=== PATIENT | female | born 1960 | race Caucasian/White ===

== ENCOUNTER 2020-03-29 13:53 | Emergency (ER) | payer MEDICARE, SELFPAY ==
--- NOTE | ~2020-03-29 | US_ITS ---
US abdomen complete EXAMINATION: US Abdomen Complete INDICATION: Diarrhea. Abdomen pain. PROCEDURE: Realtime High Resolution abdomen ultrasound. COMPARISON: No prior studies for comparison FINDINGS: Gallbladder is surgically absent. Common bile duct measures 5.6 mm. Liver echotexture is increased, consistent with fatty infiltration.. Pancreas within normal limits. Pancreatic tail is obscured by bowel gas. Spleen is unremarkeable. Renal echotexture is within norm al limits bilaterally without hydronephrosis, contour deforming mass or renal stone. Right kidney stacey sures 10.4 cm. Left kidney measures 10.7 cm. Visualized aspects of the aorta and IVC are within normal limits. Portal vein is patent. No sonograph ic Salgado's sign indicated by the technologist. IMPRESSION: 1: Hepatic steatosis. 2: Gallbladder is surgically absent. Reviewed, dictated and finalized at location A.
[2020-03-29 13:58] VITALS: BP 127/91; PULSE 109; RESP 16; TEMP 36.9; O2SAT 96
--- NOTE | 2020-03-29 14:11 | ED.NAVMDI ---
HPI - Nausea/Vomiting/Diarrhea General Chief complaint: Abdominal Pain Stated complaint: diarrhea/abd pain Time Seen by Provider: 03/29/20 14:07 Source: patient History of Present Illness HPI Narrative: Pt c/o diarrhea, loose watery, accompanied by lower abd pain, started 3 years ago on and off.. Denies abd pain, n/v or fever. Pt states she's had multiple ct scans of her abd/pelvis due to the above complaints. MD elicited complaint: diarrhea Related Data Home Medications Medication Instructions Recorded Confirmed ketoconazole 2 % topical cream 1 applic TOPICAL DAILY 10/25/19 trazodone 100 mg PO HS 03/29/20 Allergies Allergy/AdvReac Type Severity Reaction Status Date / Time oxymorphone Allergy Severe ANAPHYLAXIS Verified 03/29/20 14:06 sulfamethoxazole Allergy Mild Unknown Verified 03/29/20 14:06 trimethoprim Allergy Mild Unknown Verified 03/29/20 14:06 cimetidine Allergy Unknown Unknown Verified 03/29/20 14:06 erythromycin base Allergy Unknown Unknown Verified 03/29/20 14:06 Macrolide Antibiotics Allergy Unknown Unknown Verified 03/29/20 14:06 prochlorperazine Allergy Unknown Agitated Verified 03/29/20 14:06 promethazine Allergy Unknown Agitated Verified 03/29/20 14:06 Sulfa (Sulfonamide Allergy Unknown Itching Verified 03/29/20 14:06 Antibiotics) azithromycin Allergy Unknown Verified 03/29/20 14:06 [From Zithromax Z-Zhao] Review of Systems Review of Systems: All systems reviewed & are unremarkable except as noted in HPI and below Constitutional: Constitutional: Denies body ache(s), Denies chills, Denies excessive sweating, Denies fatigue, Denies fever(s), Denies headache(s), Denies lethargy, Denies malaise, Denies weakness and Denies weight loss Eyes: Eyes: Denies blurry vision, Denies change in vision and Denies loss of vision ENT: Denies dizziness, Denies ear discharge, Denies headache(s), Denies lip swelling, Denies epistaxis, Denies nasal congestion, Denies neck pain, Denies throat swelling and Denies tongue swelling Cardiovascular: Cardiovascular: Denies chest pain, Denies chest pain at rest, Denies chest pain with activity, Denies diaphoresis, Denies rapid heart rate, Denies edema, Denies irregular heart rhythm, Denies lightheadedness, Denies palpitations, Denies dyspnea and Denies dyspnea on exertion Respiratory: Respiratory: Denies chest congestion, Denies cough, Denies hemoptysis, Denies dyspnea and Denies dyspnea on exertion Gastrointestinal: Gastrointestinal: Denies abdominal pain, Denies melena, Denies hematochezia, Denies nausea, Denies vomiting and Denies hematemesis Musculoskeletal: Musculoskeletal: Denies abnormal gait, Denies deformity, Denies joint swelling, Denies limited range of motion, Denies neck pain and Denies numbness Neurologic: Denies Abnormal speech present, Denies abnormal gait, Denies confusion, Denies dizziness, Denies headache(s), Denies focal weakness, Denies loss of vision, Denies numbness, Denies Other visual disturbances, Denies Sensory deficit (Neuro) and Denies weakness Psychiatric: Psychiatric: Denies confusion, Denies depression, Denies auditory hallucinations, Denies homicidal ideation and Denies suicidal ideation Endocrine: Endocrine: Denies cold intolerance, Denies excessive sweating, Denies fatigue, Denies heat intolerance and Denies palpitations Hematologic/Lymphatic: Hematologic/Lymphatic: Denies easy bleeding and Denies easy bruising Allergic/Immunologic: Allergic/Immunologic: Denies lip swelling, Denies throat swelling and Denies tongue swelling [facility] Past Medical History Medical History (Updated 03/29/20 @ 16:59 by James Li MD) Acute hypokalemia Bilateral wrist pain BMI 28.0-28.9,adult BMI 29.0-29.9,adult Edema Follow up On fdc drug therapy Right wrist pain Tenosynovitis of right wrist Social History Social History Smoking status: Smoker, status unknown Alcohol intake: current
[2020-03-29 14:31] LABS: Basophils Absolute Auto 0.1 K/mm3 (0.0-0.1); Basophils Percent Auto 0.6 % (0.2-1.2); Eosinophils Absolute Auto 0.1 K/mm3 (0-0.3); Eosinophils Percent Auto 0.7 % (0-4.4); Hematocrit 43.9 % (37.0-47.0); Hemoglobin 14.7 g/dL (12.0-15.0); Immature Granulocyte Absolute 0.05 K/mm3 (0.00-0.031); Immature Granulocyte Percent A 0.6 % (0-0.5); Lymphocytes Absolute Auto 2.08 K/mm3 (0.9-3.2); Lymphocytes Percent Auto 23.3 % (18.3-44.2); Mean Corpuscular HGB Conc 33.5 g/dl (32-36); Mean Corpuscular Hemoglobin 36.4 pg (26-34); Mean Corpuscular Volume 108.7 fl (80-100); Mean Platelet Volume 10.5 fl (7.4-10.4); Monocytes Absolute Auto 0.7 K/mm3 (0.1-0.6); Monocytes Percent Auto 7.3 % (2.6-8.5); Neutrophils Percent Auto 67.5 % (45.5-73.1); Platelet Count Result 301 k/mm3 (150-375); Red Blood Count 4.04 M/mm3 (4.2-5.4); Red Cell Distribution Width 13.8 % (11.5-14.5); White Blood Count 8.9 K/mm3 (4.5-10.0)
[2020-03-29 14:36] LABS: Alanine Aminotransferase 32 U/L (4-35); Albumin Level 4.4 g/dL (3.5-5.1); Alkaline Phosphatase 118 U/L (38-126); Aspartate Amino Transferase 72 U/L (14-36); Bilirubin,Total 0.4 mg/dL (0.2-1.3); Blood Urea Nitrogen 3 mg/dL (7-17); Calcium 9.4 mg/dL (8.4-10.2); Carbon Dioxide 18 mmol/L (22-30); Chloride 101 mmol/L (98-107); Estimated CRCL calculation 75 ml/min; Estimated Glomerular Filt Rate > 60; Glucose 173 mg/dL (65-105); Sodium 134 mmol/L (137-145)
[2020-03-29] MEDS: SODIUM CHLORIDE 0.9% IV 1,000 ML 999 ML IV CONT (14:54)
[2020-03-29] MEDS: ACETAMINOPHEN 325 MG TABLET 650 MG PO (16:27)
== END 2020-03-29 17:19 | disposition left against medical advice (07) ==
PROVIDERS: Emergency Provider Emergency Medicine; PCP Internal Medicine
DX: R10.30 Lower abdominal pain, unspecified (principal); R19.7 Diarrhea, unspecified
CPT/HCPCS: 36415; 76700; 80053; 85025; 96360; 99284; A9270; J7030

== ENCOUNTER 2020-04-09 05:40 | Outpatient (CLI) | payer MEDICARE, SELFPAY ==
[2020-04-09 15:31] LABS: SARS-CoV-2 RNA PCR Negative
== END 2020-04-09 05:41 | disposition home or self-care (01) ==
LOC: ANHCOVIDDT 05:41
PROVIDERS: PCP Internal Medicine; Visit Provider Internal Medicine Gastroenterology
DX: Z01.818 Encounter for other preprocedural examination (principal); Z11.59 Encounter for screening for other viral diseases
CPT/HCPCS: 87635; U0003

== ENCOUNTER 2020-04-11 01:20 | Day surgery (SDC) | payer MEDICARE, SELFPAY ==
[2020-04-06 15:13] VITALS: BMI 28.5
[2020-04-11 07:12] VITALS: BP 119/97; PULSE 97; RESP 20; TEMP 36.6; O2SAT 98
[2020-04-11] MEDS: LACTATED RINGERS 1,000 ML 150 ML IV CONT (07:31)
--- NOTE | 2020-04-11 08:00 | WPDANESEPPF ---
Anes - Initial Pre Proc Eval Procedure: Operation Date: 04/11/20 08:30 Proposed Procedures p Colonoscopy - Mariano Alarcon MD Date/Time: 04/11/20 08:00 Surgeon: Mariano Alarcon MD Pre Op Diagnosis: Diarrhea, Abd pain, Family Hx Colon Ca Patient Data Age: 60 Gender: F Height: 5 ft 8 in Weight: 85 kg Last Vital Signs Temp 36.6 C 04/11/20 07:12 Pulse 97 04/11/20 07:12 Resp 20 04/11/20 07:12 BP 119/97 H 04/11/20 07:12 Pulse Ox 98 04/11/20 07:12 Allergies Allergy/AdvReac Type Severity Reaction Status Date / Time oxymorphone Allergy Severe ANAPHYLAXIS Verified 04/11/20 07:08 sulfamethoxazole Allergy Mild Unknown Verified 04/06/20 15:17 erythromycin base Allergy Unknown Unknown Verified 04/06/20 15:17 Macrolide Antibiotics Allergy Unknown Unknown Verified 04/06/20 15:17 prochlorperazine Allergy Unknown Agitated Verified 04/06/20 15:17 promethazine Allergy Unknown Agitated Verified 04/06/20 15:17 Sulfa (Sulfonamide Allergy Unknown Itching Verified 04/11/20 07:08 Antibiotics) azithromycin Allergy Unknown Verified 04/11/20 07:08 [From [employer]] Home Medications Medication Instructions Recorded Confirmed Type albuterol sulfate 90 mcg/actuation 1 puff INHALATION Q4H PRN #8 gm 02/24/20 04/11/20 Rx aerosol inhaler esomeprazole magnesium 20 mg 20 mg PO DAILY #90 cap 02/24/20 04/11/20 Rx capsule,delayed release ondansetron HCl 8 mg tablet 8 mg PO TID #60 tablet 02/24/20 04/11/20 Rx trazodone 100 mg PO HS 03/29/20 04/11/20 History lorazepam 0.5 mg tablet 0.5 mg PO DAILY PRN #2 tablet 04/10/20 Rx Patient hx anesthesia problems: none Family hx anesthesia problems: none PMFSH Past Medical History Medical History Acute hypokalemia Bilateral wrist pain BMI 28.0-28.9,adult BMI 29.0-29.9,adult Edema 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 Right wrist pain Tenosynovitis of right wrist Surgical History Surgical History S/P hysterectomy Family History Family History Mother Diabetes mellitus Hypertension Family history of chronic obstructive pulmonary disease Sibling Diabetes mellitus Family history of gout Father Family history of cardiovascular disease Family history of chronic obstructive pulmonary disease Grandparent Carcinoma of colon Other Family history of arthritis Social History Social History Smoking status: Smoker, status unknown Alcohol intake: current Anes - Eval Final PreProcedure Day of Procedure 04/11/20 08:00 Patient weight: overweight Heart: regular rate and rhythm Lungs: clear to auscultation Airway: Mallampati scale class II Neurological: alert and oriented Last oral intake: >/= 8 hours ASA classification: III Emergent: no Anesthetic plan: proceed Anesthesia type and monitoring: general GIVS and standard monitoring Informed Consent: The patient's anesthetic plan and its attendant risks and benefits were discussed with the patient/family/POA. Questions were solicited and answers provided to the satisfaction of the patient/family/POA.
--- NOTE | 2020-04-11 08:06 | WPDGICN ---
Assessment and Plan Assessment and plan (1) Abdominal pain: Code(s): R10.9 - Unspecified abdominal pain Status: Acute (2) Rectal bleeding: Code(s): K62.5 - Hemorrhage of anus and rectum Status: Acute Assessment and Plan: Colonoscopy will be performed to assess diarrhea rectal bleeding change in bowel habits. Inter abdominal pain. If this is not fruitful stool cultures are advised in a trial of antispasmodic agents may be of some benefit. High fiber supplements will also be considered. There appears to be a functional component to this discomfort on discussions with patient. (3) Diarrhea: Code(s): R19.7 - Diarrhea, unspecified Status: Acute (4) Obesity (BMI 30.0-34.9): Code(s): E66.9 - Obesity, unspecified Status: Acute GI Consult Note Consult date/time: 04/11/20 08:06 HPI: Kayce Guy is a 60 year old female Seen in evaluation at the request of Dr. Sevilla. Patient he complains of diarrhea for the last 3 years. She constantly has abdominal pain this will fluctuate become more intense at times. Occasionally will have rectal pain. Intermittently will notice blood per rectum she describes this as burgundy in nature. She denies a fever. She denies weight loss. Family history is significant for colon cancer in a grandparent. Past medical history is significant for a hysterectomy. Patient denies prior history of stool cultures. Review of Systems Review of Systems: All systems reviewed & are unremarkable except as noted in HPI and below PMFSH Past Medical History Medical History Acute hypokalemia Bilateral wrist pain BMI 28.0-28.9,adult BMI 29.0-29.9,adult Edema Follow up On intermediate drug therapy Right wrist pain Tenosynovitis of right wrist Surgical History Surgical History S/P hysterectomy Family History Family History Mother Diabetes mellitus Hypertension Family history of chronic obstructive pulmonary disease Sibling Diabetes mellitus Family history of gout Father Family history of cardiovascular disease Family history of chronic obstructive pulmonary disease Grandparent Carcinoma of colon Other Family history of arthritis Social History Social History Smoking status: Smoker, status unknown Alcohol intake: current Meds Home Medications and Allergies Home Medications Medication Instructions Recorded Confirmed Type albuterol sulfate 90 mcg/actuation 1 puff INHALATION Q4H PRN #8 gm 02/24/20 04/11/20 Rx aerosol inhaler esomeprazole magnesium 20 mg 20 mg PO DAILY #90 cap 02/24/20 04/11/20 Rx capsule,delayed release ondansetron HCl 8 mg tablet 8 mg PO TID #60 tablet 02/24/20 04/11/20 Rx trazodone 100 mg PO HS 03/29/20 04/11/20 History lorazepam 0.5 mg tablet 0.5 mg PO DAILY PRN #2 tablet 04/10/20 Rx Allergies Allergy/AdvReac Type Severity Reaction Status Date / Time oxymorphone Allergy Severe ANAPHYLAXIS Verified 04/11/20 07:08 sulfamethoxazole Allergy Mild Unknown Verified 04/06/20 15:17 erythromycin base Allergy Unknown Unknown Verified 04/06/20 15:17 Macrolide Antibiotics Allergy Unknown Unknown Verified 04/06/20 15:17 prochlorperazine Allergy Unknown Agitated Verified 04/06/20 15:17 promethazine Allergy Unknown Agitated Verified 04/06/20 15:17 Sulfa (Sulfonamide Allergy Unknown Itching Verified 04/11/20 07:08 Antibiotics) azithromycin Allergy Unknown Verified 04/11/20 07:08 [From Zithromax Z-Zhao] Vital Signs Vital Signs - 24 hr 04/11/20 07:12 Temperature 36.6 C Pulse Rate 97 Respiratory Rate 20 Blood Pressure 119/97 H Pulse Oximetry 98 Exam Narrative: Exam Narrative: Physical exam reveals her to be alert. Vital signs stable. HEENT exam unremar
[2020-04-11 09:08] VITALS: BP 86/52; PULSE 85; RESP 27; O2SAT 98
[2020-04-11 09:18] VITALS: BP 104/66; PULSE 83; RESP 25; O2SAT 99
[2020-04-11 09:28] VITALS: BP 105/69; PULSE 78; RESP 26; O2SAT 99
== END 2020-04-11 09:52 | disposition home or self-care (01) ==
PROVIDERS: PCP Internal Medicine; Visit Provider Internal Medicine Gastroenterology
PROC: 0DJD8ZZ Inspection of Lower Intestinal Tract, Via Natural or Artificial Opening Endoscopic (ICD-10-PCS; CPT 45378; principal; 2020-04-11 08:30)
DX: R10.84 Generalized abdominal pain (principal); K62.5 Hemorrhage of anus and rectum; K62.1 Rectal polyp; R19.7 Diarrhea, unspecified; K64.8 Other hemorrhoids; Z72.0 Tobacco use
CPT/HCPCS: 45380; 45385; 87635; 88305; C9803; J2704; J7120; U0003

== ENCOUNTER 2020-07-09 14:57 | Outpatient (CLI) | payer MEDICARE, SELFPAY ==
--- NOTE | ~2020-07-09 | XR_ITS ---
EXAMINATION: XR lumbar spine 2-3V EXAM DATE: 07/09/2020 16:27 INDICATION: Low back pain. TECHNIQUE: Lumber spine frontal, lateral, lateral L5-S1 projections for interpretation. Comparison is made to prior examination from 02/28/2017. FINDINGS: L5-S1 interbody device. Pain pump device and cholecystectomy clips. There is mild upper divine mbar, mild to moderate lower lumbar facet arthropathy. Vertebral body and disc heights are well-maint ained. The vertebral bodies are aligned in the AP dimension. There is mild to moderate scattered enoc riosclerotic disease. Paraspinal soft tissue is unremarkable. IMPRESSION: 1. No acute lumbar findings. 2. Mild to moderate facet arthropathy. Reviewed, dictated and finalized at location A.
--- NOTE | ~2020-07-09 | XR_ITS ---
EXAMINATION: XR pelvis 1-2V DATE: 07/09/2020 16:27 INDICATION: Low back pain. TECHNIQUE: An anteroposterior view of the pelvis was obtained. COMPARISON: CT abdomen and pelvis 07/24/2018 FINDINGS: Bone alignment is normal. No fracture. There are changes of anterior fusion procedure at L5 -S1 with interbody device. A pump overlies the lumbar spine. The hip joints are normal. IMPRESSION: 1. No fracture. Reviewed, dictated and finalized at location B. IMPRESSION: 1. No fracture.
[2020-07-09 16:09] LABS: Basophils Percent Auto 0.3 % (0.2-1.2); Eosinophils Absolute Auto 0.1 K/mm3 (0-0.3); Eosinophils Percent Auto 0.6 % (0-4.4); Hematocrit 35.1 % (37.0-47.0); Hemoglobin 11.7 g/dL (12.0-15.0); Immature Granulocyte Absolute 0.04 K/mm3 (0.00-0.031); Immature Granulocyte Percent A 0.5 % (0-0.5); Lymphocytes Absolute Auto 1.45 K/mm3 (0.9-3.2); Lymphocytes Percent Auto 18.7 % (18.3-44.2); Mean Corpuscular HGB Conc 33.3 g/dl (32-36); Mean Corpuscular Hemoglobin 40.5 pg (26-34); Mean Corpuscular Volume 121.5 fl (80-100); Mean Platelet Volume 10.2 fl (7.4-10.4); Monocytes Absolute Auto 0.6 K/mm3 (0.1-0.6); Monocytes Percent Auto 7.2 % (2.6-8.5); Neutrophils Absolute Auto 5.6 K/mm3 (1.3-6.7); Neutrophils Percent Auto 72.7 % (45.5-73.1); Platelet Count Result 229 k/mm3 (150-375); Red Blood Count 2.89 M/mm3 (4.2-5.4); Red Cell Distribution Width 13.7 % (11.5-14.5); White Blood Count 7.8 K/mm3 (4.5-10.0)
[2020-07-09 16:15] LABS: Alanine Aminotransferase 20 U/L (4-35); Albumin Level 3.8 g/dL (3.5-5.1); Alkaline Phosphatase 89 U/L (38-126); Anion Gap 7 mmol/L (8-16); Aspartate Amino Transferase 35 U/L (14-36); Bilirubin,Total 0.6 mg/dL (0.2-1.3); Blood Urea Nitrogen 7 mg/dL (7-17); Calcium 9.1 mg/dL (8.4-10.2); Carbon Dioxide 24 mmol/L (22-30); Chloride 105 mmol/L (98-107); Estimated Glomerular Filt Rate > 60; Glucose 116 mg/dL (65-105); Potassium 3.5 mmol/L (3.4-5.0); Sodium 136 mmol/L (137-145)
== END 2020-07-09 14:58 | disposition home or self-care (01) ==
PROVIDERS: PCP Internal Medicine; Visit Provider Internal Medicine
DX: M54.5 Low back pain (principal); Z79.899 Other long term (current) drug therapy
CPT/HCPCS: 36415; 72100; 72170; 80048; 80076; 85025

== ENCOUNTER 2020-07-18 09:18 | Outpatient (CLI) | payer MEDICARE, SELFPAY ==
--- NOTE | ~2020-07-18 | CT_ITS ---
EXAMINATION: CT lumbar spine wo con EXAM DATE: 07/18/2020 09:53 INDICATION: TECHNIQUE: Spiral CT of the lumbar spine was performed without contrast. Axial, coronal and sagittal images were reviewed. The dose-length product (DLP) for this examination was 952.02 mGy-cm. The e xposure was tailored according to patient size (auto mA exposure control), and iterative reconstructi on (ASIR) was used as additional dose reduction technique. There is no prior study for comparison. FINDINGS: There is interbody fusion, and probable laminotomies at L5-S1. Spine stimulator device ente ring at the L2-3 level. There are no acute fractures identified. The vertebral bodies are aligned in the AP dimension. Vertebral body and disc heights are well-maintained. Level by level evaluation: T12-L1: Disc does not extend beyond the endplate margin. Facet arthropathy: None. Neural foraminal stenosis: No stenosis. Central canal stenosis: No stenosis. L1-L2: Disc does not extend beyond the endplate margin. Facet arthropathy: None. Neural foraminal stenosis: No stenosis. Central canal stenosis: No stenosis. L2-L3: There is a mild diffuse disc bulge. Facet arthropathy: Mild. Neural foraminal stenosis: Mild bilateral. Central canal stenosis: No stenosis. L3-L4: There is a mild diffuse disc bulge. Facet arthropathy: Mild. Neural foraminal stenosis: Mild bilateral. Central canal stenosis: No stenosis. L4-L5: There is a mild diffuse disc bulge. Facet arthropathy: Mild. Neural foraminal stenosis: Mild bilateral. Central canal stenosis: No stenosis. L5-S1: This level is fused. Facet arthropathy: Fused. Neural foraminal stenosis: Mild left. Central canal stenosis: No stenosis. IMPRESSION: 1. L5-S1 surgical changes. Spine stimulator. 2. Mild lumbar spondylosis. Reviewed, dictated and finalized at location B.
== END 2020-07-18 09:19 ==
PROVIDERS: Visit Provider Nurse Practitioner Family
DX: M47.896 Other spondylosis, lumbar region (principal)
CPT/HCPCS: 72131

== ENCOUNTER 2020-09-07 07:42 | Outpatient (CLI) | payer MEDICARE, SELFPAY ==
--- NOTE | ~2020-09-07 | XR_ITS ---
EXAMINATION: XR chest 2V DATE: 09/07/2020 08:14 INDICATION: Right lower chest pain. Cough. TECHNIQUE: Frontal and lateral views of the chest were obtained. COMPARISON: Chest 2 views 12/04/2018, chest CT 02/10/2019 FINDINGS: The chest demonstrates clear lungs without pneumonia, pleural effusion, or pneumothorax. Th e heart size is normal. There are epidural electrodes in thoracic spine. IMPRESSION: 1. No acute cardiopulmonary disease. Reviewed, dictated and finalized at location D.
[2020-09-07 08:03] LABS: Basophils Percent Auto 0.2 % (0.2-1.2); Eosinophils Percent Auto 0.3 % (0-4.4); Hematocrit 32.4 % (37.0-47.0); Hemoglobin 11.2 g/dL (12.0-15.0); Immature Granulocyte Absolute 0.07 K/mm3 (0.00-0.031); Immature Granulocyte Percent A 0.6 % (0-0.5); Lymphocytes Absolute Auto 1.28 K/mm3 (0.9-3.2); Lymphocytes Percent Auto 11.5 % (18.3-44.2); Mean Corpuscular HGB Conc 34.6 g/dl (32-36); Mean Corpuscular Hemoglobin 40.6 pg (26-34); Mean Corpuscular Volume 117.4 fl (80-100); Mean Platelet Volume 9.1 fl (7.4-10.4); Monocytes Absolute Auto 0.6 K/mm3 (0.1-0.6); Monocytes Percent Auto 5.5 % (2.6-8.5); Neutrophils Absolute Auto 9.1 K/mm3 (1.3-6.7); Neutrophils Percent Auto 81.9 % (45.5-73.1); Platelet Count Result 299 k/mm3 (150-375); Red Blood Count 2.76 M/mm3 (4.2-5.4); Red Cell Distribution Width 14.8 % (11.5-14.5); White Blood Count 11.1 K/mm3 (4.5-10.0)
[2020-09-07 08:18] LABS: Anion Gap 8 mmol/L (8-16); Blood Urea Nitrogen 10 mg/dL (7-17); Calcium 9.3 mg/dL (8.4-10.2); Carbon Dioxide 28 mmol/L (22-30); Chloride 104 mmol/L (98-107); Estimated Glomerular Filt Rate 57; Glucose 141 mg/dL (65-105); Potassium 3.8 mmol/L (3.4-5.0); Sodium 140 mmol/L (137-145)
== END 2020-09-07 07:43 | disposition home or self-care (01) ==
PROVIDERS: PCP Internal Medicine; Visit Provider Internal Medicine
DX: J44.9 Chronic obstructive pulmonary disease, unspecified (principal); Z79.899 Other long term (current) drug therapy
CPT/HCPCS: 36415; 71046; 80048; 85025

== ENCOUNTER 2020-11-05 15:35 | Outpatient (CLI) | payer MEDICARE, SELFPAY ==
--- NOTE | ~2020-11-05 | XR_ITS ---
EXAMINATION: XR thoracic spine 3V DATE: 11/05/2020 16:38 INDICATION: Thoracic back pain TECHNIQUE: AP, lateral and lateral swimmer's views of the thoracic spine were obtained. COMPARISON: CT, 02/10/2019 FINDINGS: There is chronic mild loss of vertebral body height at T4. There is mild anterior wedging a t T9, new since the comparison examination. Neurostimulator leads end in the central spinal canal ove r the midthoracic spine. Vertebral body alignment is normal. There is mild loss of intervertebral dis c space height in the midthoracic spine. IMPRESSION: 1. Mild anterior wedging at T9, new since the prior examination, consistent with age indeterminate fr acture. Reviewed, dictated and finalized at location A. [employer] IMPRESSION: 1. Mild anterior wedging at T9, new since the prior examination, consistent wit h age indeterminate fracture.
== END 2020-11-05 15:36 | disposition home or self-care (01) ==
LOC: ANHIMG 15:37
PROVIDERS: PCP Internal Medicine; Visit Provider Internal Medicine
DX: M54.6 Pain in thoracic spine (principal)
CPT/HCPCS: 72072

== ENCOUNTER 2020-11-14 14:40 | Outpatient (CLI) | payer MEDICARE, SELFPAY ==
--- NOTE | ~2020-11-14 | CT_ITS ---
EXAMINATION: CT thoracic lumbar wo con EXAM DATE: 11/14/2020 15:18 INDICATION: M54.6 - Pain in thoracic spine TECHNIQUE: Spiral CT thoracolumbar spine was performed without contrast. Axial, coronal and sagittal images of the thoracic spine were reviewed. Axial, coronal and sagittal images of the lumbar spine we re reviewed. The dose-length product (DLP) for this examination was 1919.52 mGy-cm. The exposure was tailored according to patient size (auto mA exposure control), and iterative reconstruction (ASIR) w as used as additional dose reduction technique. There is a prior CT lumbar spine from 07/18/2020 for c omparison, and a prior thoracic x-ray from 11/05/2020 comparison. Correlation also made to a prior brijseh st x-ray from 07/18/2020. FINDINGS: THORACIC SPINE: There is an subacute compression fracture of the T9 vertebral body with mild compress ion at the superior endplate. This was not present on chest x-ray from August, was identified on x-r ay from last week. Chronic mild compression of the superior endplate of the T4 level. There is spine stimulator device with leads at the T7 and T8 levels. The vertebral bodies are aligned in the AP dime nsion. There is mild thoracic facet arthropathy. There are no osteoblastic or osteolytic lesions iden tified. Mild to moderate emphysema. LUMBAR SPINE: Fusion at L5-S1. The vertebral bodies are aligned in the AP dimension. Vertebral body a nd disc heights are well-maintained. Sacrum, sacroiliac joints, sacral arcuate lines are intact. Th ere is no evidence of acute lumbar fracture. There is no disc space widening or traumatic vertebral body subluxation suspected. Paraspinal soft tissue is unremarkable. Mild multilevel lower lumbar casey ral foraminal stenosis. Central canal appears widely patent. There are no osteoblastic or osteolytic lesions identified. A detailed level by level evaluation of spondylosis can be added as addendum if requested. IMPRESSION: 1. T9 subacute mild compression fracture. 2. Mild thoracolumbar spondylosis. Reviewed, dictated and finalized at location A. PRESSER
== END 2020-11-14 14:41 | disposition home or self-care (01) ==
PROVIDERS: PCP Internal Medicine; Visit Provider Internal Medicine
DX: S22.079A Unspecified fracture of T9-T10 vertebra, initial encounter for closed fracture (principal); Z98.1 Arthrodesis status; M47.815 Spondylosis without myelopathy or radiculopathy, thoracolumbar region; J43.9 Emphysema, unspecified; M48.05 Spinal stenosis, thoracolumbar region
CPT/HCPCS: 72128; 72131

== ENCOUNTER 2021-03-11 09:29 | Outpatient (CLI) | payer MEDICARE, SELFPAY ==
[2021-03-11 09:56] LABS: Basophils Absolute Auto 0.1 K/mm3 (0.0-0.1); Basophils Percent Auto 0.4 % (0.2-1.2); Eosinophils Absolute Auto 0.1 K/mm3 (0-0.3); Eosinophils Percent Auto 0.9 % (0-4.4); Hemoglobin 9.9 g/dL (12.0-15.0); Immature Granulocyte Absolute 0.05 K/mm3 (0.00-0.031); Immature Granulocyte Percent A 0.4 % (0-0.5); Lymphocytes Absolute Auto 0.97 K/mm3 (0.9-3.2); Lymphocytes Percent Auto 7.1 % (18.3-44.2); Mean Corpuscular HGB Conc 31.9 g/dl (32-36); Mean Corpuscular Hemoglobin 35.1 pg (26-34); Mean Corpuscular Volume 109.9 fl (80-100); Mean Platelet Volume 9.9 fl (7.4-10.4); Neutrophils Absolute Auto 11.5 K/mm3 (1.3-6.7); Neutrophils Percent Auto 84.2 % (45.5-73.1); Platelet Count Result 384 k/mm3 (150-375); Red Blood Count 2.82 M/mm3 (4.2-5.4); White Blood Count 13.7 K/mm3 (4.5-10.0)
[2021-03-11 10:11] LABS: Alanine Aminotransferase 13 U/L (4-35); Albumin Level 2.9 g/dL (3.5-5.1); Alkaline Phosphatase 168 U/L (38-126); Amylase 139 U/L (30-110); Anion Gap 5 mmol/L (8-16); Aspartate Amino Transferase 34 U/L (14-36); Bilirubin,Total 0.6 mg/dL (0.2-1.3); Blood Urea Nitrogen 10 mg/dL (7-17); Calcium 8.3 mg/dL (8.4-10.2); Carbon Dioxide 28 mmol/L (22-30); Chloride 103 mmol/L (98-107); Estimated Glomerular Filt Rate > 60; Glucose 110 mg/dL (65-105); Lipase 534 U/L (23-300); Potassium 3.8 mmol/L (3.4-5.0); Sodium 136 mmol/L (137-145)
[2021-03-11 11:24] LABS: Folic Acid 11.5 ng/mL (2.76->20)
[2021-03-15 09:50] LABS: Vitamin B6 <2.0 ng/mL (2.1-21.7)
[2021-03-16 12:16] LABS: Vitamin B2 <5.0 nmol/L (6.2-39.0)
== END 2021-03-11 09:30 | disposition home or self-care (01) ==
PROVIDERS: PCP Internal Medicine; Visit Provider Internal Medicine
DX: K86.9 Disease of pancreas, unspecified (principal); R11.2 Nausea with vomiting, unspecified; Z79.899 Other long term (current) drug therapy; N30.90 Cystitis, unspecified without hematuria
CPT/HCPCS: 36415; 80053; 82150; 82607; 82746; 83690; 84207; 84252; 84425; 84439; 84443; 85025

== ENCOUNTER 2021-03-12 15:39 | Outpatient (CLI) | payer MEDICARE, SELFPAY | END 2021-03-12 15:40 | disposition home or self-care (01) | LOC: ANHCOVIDVC 15:39 | PROVIDERS: PCP Internal Medicine | DX: Z23 Encounter for immunization (principal) | CPT/HCPCS: 0001A; 91300 ==

== ENCOUNTER 2021-04-02 15:38 | Outpatient (CLI) | payer MEDICARE, SELFPAY | END 2021-04-02 15:39 | disposition home or self-care (01) | LOC: ANHCOVIDVC 15:38 | PROVIDERS: PCP Internal Medicine | DX: Z23 Encounter for immunization (principal) | CPT/HCPCS: 0002A; 91300 ==

== ENCOUNTER → 2021-09-13 12:28 | Outpatient (CLI) | payer MEDICARE, SELFPAY ==
--- NOTE | ~2021-09-13 | XR_ITS ---
EXAMINATION: XR lumbar spine 2-3V DATE: 09/13/2021 13:30 INDICATION: Radiculopathy of cervical, thoracic, and lumbar regions. TECHNIQUE: 3 views of lumbar spine were obtained. COMPARISON: Lumbar spine CT 11/14/2020 FINDINGS: Bone alignment is normal. There are changes of anterior fusion procedure at L5-S1 with inte rbody device. Vertebral body heights and intervertebral disc heights are normal. There is multilevel mild facet joint osteoarthritis. There are 2 electrodes in central spinal canal. There are surgical c lips in right abdomen. IMPRESSION: 1. Anterior fusion procedure at L5-S1. Reviewed, dictated and finalized at location A.
--- NOTE | ~2021-09-13 | XR_ITS ---
EXAMINATION: XR thoracic spine 3V DATE: 09/13/2021 13:30 INDICATION: Radiculopathy of cervical, thoracic, and lumbar regions. TECHNIQUE: 3 views of thoracic spine standing were obtained. COMPARISON: Thoracic spine CT 11/14/2020 FINDINGS: There is kyphosis of cervical spine. Again seen is a compression fracture of T9 with 2/5 lo ss of height. There is mildly decreased disc height at T8-T9. There are epidural electrodes with tips at T7 and T9. Surgical clips in the right upper quadrant are likely from cholecystectomy. IMPRESSION: 1. Chronic compression fracture of T9. 2. Mild thoracic spondylosis. Reviewed, dictated and finalized at location A.
--- NOTE | ~2021-09-13 | XR_ITS ---
EXAMINATION: XR_CERV2-3V_CR DATE: 09/13/2021 13:30 INDICATION: Radiculopathy of cervical, thoracic, and lumbar regions. TECHNIQUE: 3 views of cervical spine on 4 radiographs standing were obtained. COMPARISON: None. FINDINGS: Bone alignment is normal. Vertebral body heights are normal. There is mildly decreased disc height at C2-C3. The facet joints are unremarkable. No central canal stenosis or prevertebral soft t issue swelling. IMPRESSION: 1. Mild cervical spondylosis. Reviewed, dictated and finalized at location A.
== END ==
PROVIDERS: Visit Provider Pain Medicine Interventional Pain Medicine
DX: M47.22 Other spondylosis with radiculopathy, cervical region (principal); M47.23 Other spondylosis with radiculopathy, cervicothoracic region; K86.1 Other chronic pancreatitis; F41.1 Generalized anxiety disorder; K74.60 Unspecified cirrhosis of liver; M47.894 Other spondylosis, thoracic region; S22.070A Wedge compression fracture of T9-T10 vertebra, initial encounter for closed fracture; X58.XXXA Exposure to other specified factors, initial encounter; Z98.1 Arthrodesis status
CPT/HCPCS: 72040; 72072; 72100

== ENCOUNTER → 2021-10-16 14:04 | Outpatient (CLI) | payer MEDICARE, OTHER, SELFPAY ==
--- NOTE | ~2021-10-16 | XR_ITS ---
XR wrist RT 2V DATE: 10/16/2021 14:49 INDICATION: Right wrist pain TECHNIQUE: AP and lateral views COMPARISON: None FINDINGS: There is prominent flattening deformity and increased density of the proximal half or great er of the navicular bone consistent with chronic avascular necrosis. Otherwise there is diffuse osteopenia. No recent fracture or dislocation, periosteal reaction or bone destruction is detected. 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 [employer] IMPRESSION: Chronic avascular necrosis of the proximal half of the navicular yinka ne Diffuse osteopenia
== END ==
PROVIDERS: PCP Internal Medicine; Visit Provider Internal Medicine
DX: M85.831 Other specified disorders of bone density and structure, right forearm (principal)
CPT/HCPCS: 73100

== ENCOUNTER 2022-02-13 08:27 | Outpatient (CLI) | payer MEDICARE, SELFPAY ==
--- NOTE | 2022-02-13 11:00 | NEURO_ITS ---
Impression: # Complains of weakness and numbness of both hands. # Right ulnar neuropathy across the elbow. # Subtle evolving Carpal Tunnel Syndrome. # Needle/EMG exam not requested. Nerve Conduction Studies Anti Sensory Summary Table Stim Site NR Peak (ms) P-T Amp (?V) Site1 Site2 Delta-P (ms) Dist (cm) Yaya (m/s) Left Median Anti Sensory (2-3nd Digit) Wrist 3.2 23.4 Wrist 2-3nd Digit 3.2 14.0 44 Wrist 3.7 14.9 Wrist 2-3nd Digit 3.2 14.0 44 Right Median Anti Sensory (2-3nd Digit) Wrist 3.4 34.7 Wrist 2-3nd Digit 3.4 14.0 41 Wrist 3.4 13.0 Wrist 2-3nd Digit 3.4 14.0 41 Left Radial Anti Sensory (Base 1st Digit) Wrist 2.0 15.7 Wrist Base 1st Digit 2.0 0.0 Right Radial Anti Sensory (Base 1st Digit) Wrist 2.5 22.4 Wrist Base 1st Digit 2.5 0.0 Left Ulnar Anti Sensory (5th Digit) Wrist 2.7 29.6 Wrist 5th Digit 2.7 14.0 52 Right Ulnar Anti Sensory (5th Digit) Wrist 2.3 16.1 Wrist 5th Digit 2.3 14.0 61 Motor Summary Table Stim Site NR Onset (ms) O-P Amp (mV) Site1 Site2 Delta-0 (ms) Dist (cm) Yaya (m/s) Left Median Motor (Abd Poll Brev) Wrist 3.8 1.5 Elbow Wrist 5.0 29.0 58 Elbow 8.8 2.1 Right Median Motor (Abd Poll Brev) Wrist 3.4 3.4 Elbow Wrist 5.3 29.0 55 Elbow 8.7 2.4 Left Ulnar Motor (Abd Dig Minimi) Wrist 2.7 5.6 A Elbow Wrist 5.3 29.0 55 A Elbow 8.0 3.6 Right Ulnar Motor (Abd Dig Minimi) Wrist 2.7 4.0 A Elbow Wrist 6.0 29.0 48 A Elbow 8.7 2.1 B Elbow Wrist 3.9 20.0 51 B Elbow 6.6 1.1 F Wave Studies NR F-Lat (ms) L-R F-Lat (ms) Left Median (Mrkrs) (Abd Poll Brev) 28.41 0.40 Right Median (Mrkrs) (Abd Poll Brev) 28.01 0.40 Left Ulnar (Mrkrs) (Abd Dig Min) 27.63 0.63 Right Ulnar (Mrkrs) (Abd Dig Min) 28.26 0.63 MTDD
== END 2022-02-13 08:28 | disposition home or self-care (01) ==
LOC: ANHNEURO 08:29
PROVIDERS: PCP Internal Medicine; Visit Provider Plastic Surgery
DX: R20.2 Paresthesia of skin (principal); G56.21 Lesion of ulnar nerve, right upper limb
CPT/HCPCS: 95911

== ENCOUNTER 2022-08-18 12:00 | Outpatient (CLI) | payer MEDICARE, MEDICAID, SELFPAY ==
[2022-08-18 12:22] LABS: Basophils Percent Auto 0.1 % (0.2-1.2); Eosinophils Percent Auto 0.1 % (0-4.4); Hematocrit 35.4 % (37.0-47.0); Hemoglobin 11.9 g/dL (12.0-15.0); Immature Granulocyte Absolute 0.08 K/mm3 (0.00-0.031); Immature Granulocyte Percent A 0.6 % (0-0.5); Lymphocytes Absolute Auto 0.92 K/mm3 (0.9-3.2); Lymphocytes Percent Auto 6.4 % (18.3-44.2); Mean Corpuscular HGB Conc 33.6 g/dl (32-36); Mean Corpuscular Hemoglobin 33.9 pg (26-34); Mean Corpuscular Volume 100.9 fl (80-100); Mean Platelet Volume 8.9 fl (7.4-10.4); Monocytes Absolute Auto 0.5 K/mm3 (0.1-0.6); Monocytes Percent Auto 3.6 % (2.6-8.5); Neutrophils Absolute Auto 12.8 K/mm3 (1.3-6.7); Neutrophils Percent Auto 89.2 % (45.5-73.1); Platelet Count Result 160 k/mm3 (150-375); Red Blood Count 3.51 M/mm3 (4.2-5.4); Red Cell Distribution Width 13.8 % (11.5-14.5); White Blood Count 14.3 K/mm3 (4.5-10.0)
[2022-08-18 12:40] LABS: Anion Gap 10 mmol/L (8-16); Blood Urea Nitrogen 15 mg/dL (7-17); CRP < 0.5 mg/dL (<1.0); Calcium 8.9 mg/dL (8.4-10.2); Carbon Dioxide 24 mmol/L (22-30); Chloride 90 mmol/L (98-107); Estimated Glomerular Filt Rate > 60; Glucose 134 mg/dL (65-110); Potassium 5.1 mmol/L (3.4-5.0); Sodium 124 mmol/L (137-145)
[2022-08-18 13:27] LABS: Erythrocyte Sedimentation Rate 14 mm/hr (0-20)
== END 2022-08-18 12:01 | disposition home or self-care (01) ==
PROVIDERS: PCP Internal Medicine; Visit Provider Internal Medicine
DX: M35.3 Polymyalgia rheumatica (principal); Z79.899 Other long term (current) drug therapy
CPT/HCPCS: 36415; 80048; 85025; 85652; 86140

== ENCOUNTER 2022-08-22 12:41 | Outpatient (CLI) | payer MEDICARE, MEDICAID, SELFPAY ==
--- NOTE | ~2022-08-22 | CT_ITS ---
EXAMINATION: CT knee LT wo con DATE: 08/22/2022 13:38 INDICATION: Left knee pain. TECHNIQUE: Computed tomography (CT) of the left knee was performed without intravenous contrast. Auto mated exposure control and iterative reconstruction technique were employed. The dose-length product was 549.57 mGy-cm. COMPARISON: None FINDINGS: Bone alignment is normal. No fracture. There is mild osteoarthritis of lateral and patellof emoral compartments characterized by tiny osteophytes. No joint space narrowing. There is a small kne e joint effusion. There is a small Allison's cyst. IMPRESSION: 1. Mild left knee osteoarthritis. 2. Small left knee joint effusion. 3. Small Allison's cyst. Reviewed, dictated and finalized at location A.
--- NOTE | ~2022-08-22 | CT_ITS ---
EXAMINATION: CT knee RT wo con DATE: 08/22/2022 13:38 INDICATION: Chronic right knee pain. TECHNIQUE: Computed tomography (CT) of the right knee was performed without intravenous contrast. Aut omated exposure control and iterative reconstruction technique were employed. The dose-length product was 499.70 mGy-cm. COMPARISON: None FINDINGS: Bone alignment is normal. No fracture. There is mild tricompartmental osteoarthritis charac terized by tiny osteophytes. No joint space narrowing. There is a small knee joint effusion. There is a small Allison's cyst contiguous with semimembranosus-tibial collateral ligament bursitis with loose bodies. There are dystrophic calcifications in Hoffa's fat pad. IMPRESSION: 1. Mild right knee osteoarthritis. 2. Small knee joint effusion. 3. Small Allison's cyst contiguous with semimembranosus-tibial collateral ligament bursitis with loose bodies. Reviewed, dictated and finalized at location A. IMPRESSION: 1. Mild right knee osteoarthritis. 2. Small knee joint effusion. 3. Small Allison's cyst contiguous with semimembranosus-tibial collateral ligamen t bursitis with loose bodies.
== END 2022-08-22 12:42 | disposition home or self-care (01) ==
PROVIDERS: PCP Internal Medicine; Visit Provider Internal Medicine
DX: M25.462 Effusion, left knee (principal); M71.22 Synovial cyst of popliteal space [Baker], left knee; M25.461 Effusion, right knee; M71.21 Synovial cyst of popliteal space [Baker], right knee; M17.0 Bilateral primary osteoarthritis of knee
CPT/HCPCS: 73700

== ENCOUNTER 2022-08-28 16:25 | Outpatient (CLI) | payer MEDICARE, MEDICAID, SELFPAY ==
[2022-08-28 16:57] LABS: Anion Gap 13 mmol/L (8-16); Blood Urea Nitrogen 20 mg/dL (7-17); Carbon Dioxide 27 mmol/L (22-30); Chloride 85 mmol/L (98-107); Estimated Glomerular Filt Rate > 60; Glucose 144 mg/dL (65-110); Potassium 4.6 mmol/L (3.4-5.0); Sodium 125 mmol/L (137-145)
== END 2022-08-28 16:26 | disposition home or self-care (01) ==
LOC: ANHLAB 16:27
PROVIDERS: PCP Internal Medicine; Visit Provider Internal Medicine
DX: E87.1 Hypo-osmolality and hyponatremia (principal)
CPT/HCPCS: 36415; 80048

== ENCOUNTER 2022-09-16 17:32 | Outpatient (CLI) | payer MEDICARE, MEDICAID, SELFPAY ==
--- NOTE | ~2022-09-16 | XR_ITS ---
EXAMINATION: XR chest 2V Exam Date/Time: 09/16/2022 18:00 CDT HISTORY: E87.6 - Hypokalemia, HX COPD, Comparison: None available. RESULT: Lines, tubes, and devices: Stimulator leads terminate over the mid thoracic spine. Old cystectomy cl ips. Lungs and pleura: Clear. Mild emphysematous change. Cardiomediastinal silhouette: Stable. Other: No acute osseous or upper abdominal finding. IMPRESSION: No acute cardiopulmonary process. Reviewed, dictated and finalized at location K.
--- NOTE | ~2022-09-16 | XR_ITS ---
EXAM: XR knee LT 3V, XR knee RT 3V DATE: 09/16/2022 18:16 HISTORY: M25.561 - Pain in right knee, SWELLING, NO INJURY . COMPARISON: 09/03/2019. FINDINGS: Decreased mineralization. No fracture or dislocation. No lytic or blastic lesion. Ossific bodies project over the posterior joint recess and the infrapatellar region on the right. Moderate me dial joint space narrowing bilaterally. Mild tricompartmental osteophytosis bilaterally. No erosion o r periosteal change. Soft tissues within normal limits. Small volume joint fluid bilaterally. IMPRESSION: Osteopenia. No acute osseous finding in the left or right knees. Loose joint bodies in th e right knee. Bilateral tricompartmental osteoarthritis, moderate in the medial compartments and daniel llofemoral compartment of the right knee. Small knee joint effusions. Reviewed, dictated and finalized at location K. IMPRESSION: Osteopenia. No acute osseous finding in the left or right knees. Lo ose joint bodies in the right knee. Bilateral tricompartmental osteoarthritis, moderate in the medial compartments and patellofemoral compartment of the right knee. Small knee joint effusions.
== END 2022-09-16 17:33 | disposition home or self-care (01) ==
LOC: ANHIMG 17:40
PROVIDERS: PCP Internal Medicine; Visit Provider Internal Medicine
DX: E87.6 Hypokalemia (principal); I10 Essential (primary) hypertension; M23.41 Loose body in knee, right knee; M17.0 Bilateral primary osteoarthritis of knee
CPT/HCPCS: 71046; 73562

== ENCOUNTER 2022-10-06 12:57 | Outpatient (CLI) | payer MEDICARE, MEDICAID, SELFPAY ==
--- NOTE | ~2022-10-06 | US_ITS ---
EXAMINATION: US knee asp inj w image LT DATE: 10/06/2022 14:17 INDICATION: Left knee pain TECHNIQUE: The procedure including the risks and benefits was discussed with the patient. Risks discu ssed included bleeding and infection. The patient understood the risks and agreed to proceed. The sk in overlying the suprapatellar pouch of the left knee was prepped and draped in usual sterile fashion . Anesthetic was administered with 1% lidocaine subcutaneously. A 20 gauge spinal needle was advance d under continuous ultrasound observation into the anechoic fluid at the suprapatellar pouch. 20 mL f luid was aspirated and sent to the lab for studies as ordered by the referring physician. The needle was removed and the entry site was cleaned and dressed. Post procedure ultrasound demonstrated no h emorrhage. FINDINGS: Ultrasound images demonstrate a moderate-sized anechoic left knee joint effusion.. IMPRESSION: 1. Successful Ultrasound-guided aspiration of 20 mL of clear light straw-colored fluid. Reviewed, dictated and finalized at location A. EE GRINDER IMPRESSION: 1. Successful Ultrasound-guided aspiration of 20 mL of clear light straw-colore d fluid.
[2022-10-06 16:12] LABS: Appearance Synovial Fluid Hazy (Clear); Color Synovial Fluid Yellow (Colorless); Source Synovial Fluid Synovial fluid
[2022-10-06 16:13] LABS: Lymphocytes Synovial Fluid 82 %; Monocytes Synovial Fluid 18 %; Neutrophils Synovial Fluid 0 % (0-25); Nucleated Cell Synovial Fluid 1394 /uL (0-200); RBC Synovial Fluid 263 /uL (0-0)
[2022-10-06 16:15] LABS: Crystals Synovial Fluid None Seen (None Seen)
== END 2022-10-06 12:58 | disposition home or self-care (01) ==
PROVIDERS: PCP Internal Medicine; Visit Provider Nurse Practitioner
DX: M25.562 Pain in left knee (principal)
CPT/HCPCS: 20611; 87070; 87075; 87205; 89051; 89060

== ENCOUNTER 2023-10-06 10:42 | Outpatient (CLI) | payer MEDICARE, SELFPAY ==
--- NOTE | ~2023-10-06 | XR_ITS ---
EXAMINATION: XR lumbar spine min 4V DATE: 10/06/2023 11:37 INDICATION: Low back pain TECHNIQUE: Anteroposterior, lateral, and bilateral oblique views of the lumbar spine, and cone-down l ateral view of the lumbosacral junction were obtained. COMPARISON: 09/13/2021 FINDINGS: There are changes of anterior fusion at L5-S1. Bone alignment is normal. There is no fractu re. The vertebral body heights are maintained. There is mild facet joint osteoarthritis of the lower lumbar spine. A neurostimulator is implanted in the posterior subcutaneous tissues to the right of mi dline. Its leads enter the central spinal canal at the level of L2-3 and course superiorly beyond the margins of the radiograph. Calcified atherosclerosis is noted. Surgical clips in the right upper brayden drant are likely from prior cholecystectomy. IMPRESSION: 1. Changes of anterior fusion at L5-S1 and mild lumbar spondylosis without acute findings. Reviewed, dictated and finalized at location L. 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 Changes of anterior fusion at L5-S1 and mild lumbar spondylosis without acut e findings.
--- NOTE | ~2023-10-06 | XR_ITS ---
Left Knee Technique: AP, lateral, and sunrise views were obtained. Clinical History: Pain COMPARISON: 09/16/2022 Findings: There is apparent extensive depression of the lateral tibial plateau, probably due to later al tibial plateau fracture. Small joint effusion present. Soft tissues are unremarkable. No dislocati on evident. Impression: Probable lateral tibial plateau fracture, with significant depression of the lateral tibial plateau. CT recommended to better assess presumed fracture anatomy. Reviewed, dictated and finalized at location . IC WORKER Impression: Probable lateral tibial plateau fracture, with significant depression of the la teral tibial plateau. CT recommended to better assess presumed fracture anatomy .
--- NOTE | ~2023-10-06 | XR_ITS ---
Right Knee Technique: AP, lateral, and sunrise views were obtained. Clinical History: Pain COMPARISON: 09/17/2022 Findings: No acute fracture or dislocation seen. Probable osteochondral lesion at the medial femoral condyle. There is minimal degenerative spurring. Probable intra-articular loose bodies present, simil ar to prior exam. Small joint effusion is seen. Impression: Probable osteochondral lesion of the medial femoral condyle with intra-articular loose bodies present . Consider MR to further evaluate. Small joint effusion. Reviewed, dictated and finalized at location M. TEACHER Impression: Probable osteochondral lesion of the medial femoral condyle with intra-articula r loose bodies present. Consider MR to further evaluate. Small joint effusion.
== END 2023-10-06 10:43 | disposition home or self-care (01) ==
PROVIDERS: PCP Internal Medicine; Visit Provider Internal Medicine
DX: M25.461 Effusion, right knee (principal); M43.06 Spondylolysis, lumbar region; M17.9 Osteoarthritis of knee, unspecified; M54.9 Dorsalgia, unspecified; G89.29 Other chronic pain; Z87.81 Personal history of (healed) traumatic fracture
CPT/HCPCS: 72110; 73564

== ENCOUNTER 2024-04-05 12:02 | Outpatient (CLI) | payer MEDICARE, OTHER, SELFPAY ==
[2024-04-05 12:53] LABS: Basophils Percent Auto 0.3 % (0.2-1.2); Eosinophils Percent Auto 0.1 % (0-4.4); Hematocrit 30.7 % (37.0-47.0); Immature Granulocyte Absolute 0.03 K/mm3 (0.00-0.031); Immature Granulocyte Percent A 0.4 % (0-0.5); Immature Platelet Fraction Pct 10.4 % (0.9-11.2); Lymphocytes Absolute Auto 0.83 K/mm3 (0.9-3.2); Lymphocytes Percent Auto 10.4 % (18.3-44.2); Mean Corpuscular HGB Conc 29.3 g/dl (32-36); Mean Corpuscular Hemoglobin 20.9 pg (26-34); Mean Corpuscular Volume 71.2 fl (80-100); Mean Platelet Volume 10.3 fl (7.4-10.4); Monocytes Absolute Auto 0.5 K/mm3 (0.1-0.6); Monocytes Percent Auto 6.8 % (2.6-8.5); Neutrophils Absolute Auto 6.6 K/mm3 (1.3-6.7); Platelet Count Result 155 k/mm3 (150-375); Red Blood Count 4.31 M/mm3 (4.2-5.4); Red Cell Distribution Width 19.2 % (11.5-14.5)
[2024-04-05 13:03] LABS: Alanine Aminotransferase 9 U/L (6-35); Albumin Level 4.1 g/dL (3.5-5.1); Alkaline Phosphatase 110 U/L (38-126); Amylase 71 U/L (30-110); Anion Gap 7 mmol/L (4-12); Aspartate Amino Transferase 16 U/L (14-36); Bilirubin,Total 0.4 mg/dL (0.2-1.3); Blood Urea Nitrogen 7 mg/dL (7-17); Calcium 8.5 mg/dL (8.4-10.2); Carbon Dioxide 28 mmol/L (22-30); Chloride 89 mmol/L (98-107); Estimated Glomerular Filt Rate > 60; Glucose 105 mg/dL (65-110); Lipase 157 U/L (23-300); Potassium 3.9 mmol/L (3.4-5.0); Sodium 124 mmol/L (137-145)
[2024-04-05 13:19] LABS: Platelet Estimate Adequate (Adequate)
[2024-04-05 13:21] LABS: Ovalocytes 1+; Schistocytes None Seen
== END 2024-04-05 12:03 | disposition home or self-care (01) ==
PROVIDERS: PCP Internal Medicine; Visit Provider Internal Medicine
DX: E46 Unspecified protein-calorie malnutrition (principal); K86.89 Other specified diseases of pancreas; R79.89 Other specified abnormal findings of blood chemistry; Z79.899 Other long term (current) drug therapy; Z98.890 Other specified postprocedural states
CPT/HCPCS: 36415; 80053; 82150; 83690; 85025; 85055